=== PATIENT | female | born 1980 | race American Indian/Alaskan Native ===

== ENCOUNTER 2019-11-06 12:06 | Emergency (ER) | payer OTHER ==
[2019-11-06 12:44] VITALS: BP 125/74
--- NOTE | 2019-11-06 12:44 | Event Note ---
ED Screening Note ED Screening Note: states she was running and tripped over a rock fell to the ground having left foot/ankle pain never injured before pmhx chronic pain no allergies to meds LNMP: 2 weeks ago This initial assessment/diagnostic orders/clinical plan/treatment(s) is/are subject to change based on patients health status, clinical progression and re- assessment by fellow clinical providers in the ED. Further treatment and workup at subsequent clinical providers discretion. Patient/guardian urged not to elope from the ED as their condition may be serious if not clinically assessed and managed. Initial orders include: XR of the left ankle and foot
--- NOTE | 2019-11-06 13:42 | XRay Report ---
LEFT FOOT 3 VIEWS INDICATION / CLINICAL INFORMATION: fall over rock, left foot pain COMPARISON: None available. FINDINGS: BONES / JOINT(S): No acute fracture or subluxation. Small bunion first metatarsal head medially. SOFT TISSUES: No significant abnormality. ADDITIONAL FINDINGS: LEFT ANKLE 3 VIEWS INDICATION / CLINICAL INFORMATION: fall over rock, left foot pain COMPARISON: None available. FINDINGS: BONES / JOINT(S): No acute fracture or subluxation. No significant arthritis. SOFT TISSUES: No significant abnormality. ADDITIONAL FINDINGS: None. Signer Name: Satya Griggs MD Signed: 11/06/2019 1:37 PM Workstation Name: [id number]
--- NOTE | 2019-11-06 16:05 | Emergency Department Report ---
ED Extremity Problem HPI - General Chief complaint: Extremity Injury, Lower Stated complaint: LT LEG /ANKLE PAIN Time Seen by Provider: 11/06/19 12:42 Source: patient Mode of arrival: Wheelchair Limitations: No Limitations - History of Present Illness Initial comments: 39-year-old female with no significant past medical history presents to the hospital complains of left ankle and foot pain after injury at [employer]. Patient was running and twisted her ankle and reports 5/10 pain on arrival. Pain worse with palpation and movement. Patient received Tylenol prior to arrival. No evidence of reported. No previous injury to ankle reported. She is able to bear partial weight Severity scale (0 -10): 10 - Related Data Previous Rx's Medication Instructions Recorded Last Taken Type Ibuprofen [Motrin] 600 mg PO Q8H PRN #20 tablet 11/06/19 Unknown Rx traMADoL [Ultram 50 MG tab] 50 mg PO Q6HR PRN #15 tablet 11/06/19 Unknown Rx Allergies Allergy/AdvReac Type Severity Reaction Status Date / Time No Known Allergies Allergy Verified 11/06/19 12:10 ED Review of Systems ROS: Stated complaint: LT LEG /ANKLE PAIN Other details as noted in HPI Comment: All other systems reviewed and negative ED Past Medical Hx - Past Medical History Previous Medical History?: No - Surgical History Past Surgical History?: No - Medications Home Medications: Home Medications Medication Instructions Recorded Confirmed Last Taken Type Ibuprofen [Motrin] 600 mg PO Q8H PRN #20 tablet 11/06/19 Unknown Rx traMADoL [Ultram 50 MG tab] 50 mg PO Q6HR PRN #15 tablet 11/06/19 Unknown Rx ED Physical Exam - General Limitations: No Limitations - Other Other exam information: General: No limitations, patient is alert in no acute distress Head exam: Atraumatic, normocephalic Eyes exam: Normal appearance ENT: Moist mucous membrane Neck exam: Normal inspection, full range of motion Respiratory exam: Clear to auscultation bilateral, no wheezes, rales, crackles Cardiovascular: Normal rate and rhythm Abdomen: Soft, nondistended, and nontender, with normal bowel sounds, no rebound, or guarding Extremity: No deformity, no tenderness at medial lateral malleoli. Tenderness at the lateral ankle tendons distal to the malleolus and tenderness to the first MTP joint. 2+ DP pulse. Mild swelling. Full range of motion. Back: Normal Inspection, no CVA tenderness Neurologic: Alert, oriented x3, speech clear, no gross motor or sensory deficit Psychiatric: Normal mood, affect Skin: No rash ED Course Vital Signs 11/06/19 12:43 Temperature 98.4 F Pulse Rate 115 H Respiratory 18 Rate Blood Pressure 125/74 [Right] O2 Sat by Pulse 100 Oximetry ED Medical Decision Making - Radiology Data Radiology results: report reviewed LEFT FOOT 3 VIEWS INDICATION / CLINICAL INFORMATION: fall over rock, left foot pain COMPARISON: None available. FINDINGS: BONES / JOINT(S): No acute fracture or subluxation. Small bunion first metatarsal head medially. SOFT TISSUES: No significant abnormality. ADDITIONAL FINDINGS: LEFT ANKLE 3 VIEWS INDICATION / CLINICAL INFORMATION: fall over rock, left foot pain COMPARISON: None available. FINDINGS: BONES / JOINT(S): No acute fracture or subluxation. No significant arthritis. SOFT TISSUES: No significant abnormality. ADDITIONAL FINDINGS: None. - Medical Decision Making HR normal on exam Patient with left ankle and foot sprain secondary to twisting injury while running during physical therapy/[employer] training. No fracture identified. Incidental bunion noted. Alec wrap and ankle stirrup applied. Crutches offered but declined since pt is able to bear weight Patient's paperwork filled out per patient request. Follow-up with [facility]) orthopedic and/or podiatry recommended - Differential Diagnosis fracture, contusion, sprain Critical Care Time: No Critical care attestation.: If time is entered above; I have spent that time in minutes in the direct care of this critically ill patient, excluding procedure time. ED Disposition Clinical Impression: Sprain of left foot Ankle sprain Qualifiers: Encounter type: initial encounter Laterality: left Disposition: DC-01 TO HOME OR SELFCARE Is pt being admited?: No Condition: Stable Instructions: Ankle Sprain (ED), Bunion (ED), Foot Sprain (ED) Additional Instructions: Take the medication as prescribed. Follow-up with your doctor or the clinic/doctor provided. Return is symptoms worsen as indicated by the discharge instructions. Prescriptions: Ibuprofen [Motrin] 600 mg PO Q8H PRN #20 tablet PRN Reason: Pain, Moderate (4-6) traMADoL [Ultram 50 MG tab] 50 mg PO Q6HR PRN #15 tablet PRN Reason: Pain , Severe (7-10) Referrals: your, doctor [Other] - 3-5 Days CHIKIS JACQUES MD [Staff Physician] - 3-5 Days (Orthopedic doctor) DOUGLAS COFFMAN DPM [Staff Physician] - 3-5 Days (Freight Delivery Driver) Time of Disposition: 16:14
== END 2019-11-06 19:02 | disposition home or self-care (01) ==
LOC: ED 12:06
DX: S93.492A Sprain of other ligament of left ankle, initial encounter (principal); X50.1XXA Overexertion from prolonged static or awkward postures, initial encounter; Y93.02 Activity, running; Y92.89 Other specified places as the place of occurrence of the external cause; Y99.8 Other external cause status
CPT/HCPCS: 99283